=== PATIENT | female | born 1950 | race Caucasian/White ===

== ENCOUNTER 2017-12-01 06:18 | Emergency (ER) | payer MEDICARE, BC ==
[2017-12-01 06:42] LABS: BASOPHILS % (AUTO) 2 % (0-3); EOSINOPHILS % (AUTO) 0 % (0-9); HEMATOCRIT 26 % (35-47); HEMOGLOBIN 8.3 gm/dl (12.0-15.5); LYMPHOCYTES % (AUTO) 31.4 % (10-50); MEAN CORPUSCULAR HEMOGLOBIN 32.1 pg (27.0-32.0); MEAN CORPUSCULAR HGB CONC 31.6 gm/dl (32.0-36.0); MONOCYTES % (AUTO) 11.8 % (0-12); NEUTROPHILS % (AUTO) 54.7 % (37-80)
[2017-12-01 06:46] LABS: MEAN CORPUSCULAR VOLUME 102 fL (81-99)
[2017-12-01] MEDS ORDERED: DOPAMINE PREMIX 400,000 MCG/250 ML SOL IV PRN (07:06)
[2017-12-01] MEDS ORDERED: NOREPINEPHRINE BITARTRATE 4 MG/4 ML SOL IV ONE (07:20)
[2017-12-01] MEDS ORDERED: EPINEPHRINE HCL 0.1 MG/ML SOL IV PRN ×2 (07:20→07:21)
[2017-12-01] MEDS ORDERED: SODIUM CHLORIDE 0.9% 1000ML 1,000 ML IV ONE (07:23)
[2017-12-01 07:28] LABS: BLOOD UREA NITROGEN 29 mg/dl (7-18); CALCIUM 8.3 mg/dl (8.5-10.1); CARBON DIOXIDE 8.1 mEq/L (21-32); CHLORIDE 96 mMol/L (98-107); CREATININE 1.67 mg/dl (0.60-1.00); GLOM FILT RATE 30 mL/min (>60); GLUCOSE 252 mg/dl (74-106); POTASSIUM 5.4 mMol/L (3.5-5.1); SODIUM 133 mMol/L (136-145)
[2017-12-01 07:29] LABS: TROP I < 0.017 ng/ml (0.000-0.056)
[2017-12-01] MEDS: SODIUM CHLORIDE 0.9% 1000ML 1,000 ML IV SCH ×2 (07:29→07:55)
[2017-12-01] MEDS: EPINEPHRINE HCL 0.1 MG/ML SOL IV PRN ×5 (07:51→08:21)
[2017-12-01] MEDS ORDERED: EPINEPHRINE 1:1000 AMP 1 MG/ML SOL ONE (07:59)
[2017-12-01] MEDS ORDERED: EPINEPHRINE 1:10,000 PREFILL 0.1 MG/ML SOL ONE ×3 (08:19→10:43)
[2017-12-01] MEDS ORDERED: SODIUM CHLORIDE 0.9% FLUSH 10 ML SOL IV PRN (09:29)
[2017-12-01] MEDS ORDERED: NOREPINEPHRINE 4 MG/4 ML 4 MG in DEXTROSE 500 ML 500 ML IV SCH (09:30)
[2017-12-01] MEDS ORDERED: EPINEPHRINE IV SCH (09:45)
[2017-12-01] MEDS ORDERED: SODIUM CHLORIDE 0.9% IV SCH (09:45)
[2017-12-01 11:10] VITALS: PULSE 73; O2SAT 71
[2017-12-01 11:15] VITALS: BP 38/17; RESP 9
== END 2017-12-01 08:22 | disposition expired | DRG 298 ==
LOC: ED 06:18
DX: I46.9 Cardiac arrest, cause unspecified (principal); M54.9 Dorsalgia, unspecified
CPT/HCPCS: 31500; 71045; 80048; 84484; 85025; 96365; 96374; 99291; J3490